=== PATIENT | female | born 1960 | race Caucasian/White ===

== ENCOUNTER → 2017-10-20 | Day surgery (SDC) | payer BC ==
[~2017-10-20] MED LIST: ACETAMINOPHEN 1000 MG/100 ML 100 ML IV ONE; BUPIVACAINE/EPINEPHRINE 0.25% 50 ML VIAL ONE; HYDROmorphone HCL PF 2 MG/ML VIAL ONE; ISOSULFAN BLUE 50 MG/5 ML VIAL SQ ONE; LACTATED RINGER'S 1000 ML INJ 1,000 ML ONE; LIDOCAINE 1%/EPINEPHrine 1:100,000 SOLN 30 ML VIAL ONE; MIDAZOLAM HCL 2 MG/2 ML VIAL ONE; MORPHINE SULFATE 4 MG/ML INJ ONE; ONDANSETRON HCL 4 MG/2 ML VIAL IV PUSH ONE; PROPOFOL 200 MG/20 ML AMP IV ONE; SODIUM CHLORIDE 0.9% INJ 0 ML ONE; ceFAZolin INJ 1,000 MG VIAL ONE
--- NOTE | 2017-10-20 15:39 | TN ---
cc: CONCEPCION BARNARD M.D. DATE OF SURGERY: 10/20/2017 PREOPERATIVE DIAGNOSIS Right breast cancer, possible multifocal. POSTOPERATIVE DIAGNOSIS Right breast cancer, possible multifocal. PROCEDURE Left total mastectomy, inject blue dye right breast, right total mastectomy, right axillary sentinel lymph node biopsy. SURGEON Dr. Concepcion Barnard. ANESTHESIA General. INDICATIONS This is a very pleasant 57-year-old woman who was recently diagnosed with infiltrating ductal carcinoma of the right breast, moderately differentiated, ER/CO positive, HER2/jessica negative. On MRI she was found to have enhancing mass in the left breast and additional enhancement in the right breast. She underwent MR guided biopsy of the right breast. The left breast was felt to be benign and after further evaluation and discussion she elected to proceed with bilateral mastectomy. INTRAOPERATIVE FINDINGS Left breast to pathology with short stitch superior anterior and long stitch lateral posterior. Right breast sent to pathology with a short stitch superior anterior and a long stitch lateral posterior. A separate inferomedial margin of the right side was sent with a stitch on the new inferior medial margin. Right axillary sentinel lymph nodes were removed. Number one had a 10 second count of 5210, number two [id number], number three [id number], none were blue. Two additional nonsentinel lymph nodes were sent. Estimated blood loss was less than 100 mL. Drains included a 10-Latvian fluted drain on each side. 25 ccs of Marcaine 0.25% with epinephrine was placed in each drain. Dressings included bilateral Hasmukh dressings. DESCRIPTION OF PROCEDURE IN DETAIL The patient was identified as Allie Carreon, taken to the operating room and placed in the supine position. Sequential compression devices were placed on bilateral lower extremities. Following induction of adequate general anesthesia a time-out procedure was performed. Following completion of time-out procedure to everyone's satisfaction within the room, the skin of the breast was prepped with alcohol swab and injected with 5 ccs of isosulfan blue dye. It is important to note the right breast was extremely ecchymotic following her most recent biopsy. The bilateral breast and axilla and upper chest were prepped and draped in usual sterile fashion with Betadine. The proposed fairly symmetric elliptical incisions clamshell shaped were made with a marking pen and attention was turned first to the left side. The incision was carried out with a scalpel and hemostasis controlled with electrocautery. Superior and inferior breast flaps were developed with electrocautery at the junction between subcutaneous tissue and the breast tissue. The breast was removed from the underlying pectoralis muscle including the fascia with the specimen medial to lateral. Hemoclips were used on lymphovascular structures at the junction of the breast in the axilla. The breast was removed in its entirety, marked with suture and passed off the field for pathologic evaluation. The wound was irrigated copiously with saline, removing all debris. Hemostasis was assured with electrocautery. Through an inferomedial incision a 10-Latvian fluted drain was placed into the wound and held in position at level of skin with a 3-0 Nylon drain stitch and the wound was closed in layers using multiple interrupted 3-0 Vicryl in the deep dermis and subcutaneous tissue and a running 4-0 Monocryl in the subcuticular position of the skin. Drain was connected to suction and the wound was covered with sterile towel and attention was turned to the right side. Incision on the right side was carried out with a scalpel. Hemostasis was controlled with electrocautery. Superior and inferior breast flaps were developed with the electrocautery in the plane between the subcutaneous fatty tissue and the breast tissue which was made more difficult to find inferiorly due to a hematoma post biopsy and a severe ecchymotic change in the inferior portion of the breast. Nevertheless, the breast was removed from the underlying pectoralis muscle including the fascia with the specimen medial to lateral. Lymphovascular structures laterally were cross-clamped with hemoclips and the specimen was removed in its entirity. Short stitch was placed superior anterior and a long stitch lateral posterior in right breast, passed off the field for pathologic evaluation. Evaluation of flaps demonstrated some additional tissue inferior medially and this was excised as a new inferomedial margin with a new suture on the new inferomedial margin. Hemostasis was assured. The wound was irrigated copiously with saline. Small bleeding points were controlled with electrocautery. Attention was then turned to right axillary sentinel lymph node biopsy. Using the navigator probe sentinel lymph node biopsy was performed. [place] nodes were from surrounding tissues using electrocautery, blunt dissection and hemoclips on lymphovascular structures. The nodes were removed as discussed above, 10-second count was performed and nodes passed off the field for pathologic evaluation. No blue dye stain was present in the axilla. Survey with the navigator probe demonstrated only increased uptake on a branch of the thoracodorsal vein. No additional palpable nodes, visually abnormal nodes or nodes with increased radionuclide uptake were identified. Again, axilla was irrigated with saline. There was no evidence of bleeding. Through the inferomedial stab incision a 10-Latvian fluted drain was placed, held in position at level of skin with 3-0 Nylon stitch so the end of the drain was in the axilla. The incision was then closed with multiple interrupted inverted 3-0 Vicryl sutures. Running 4-0 Monocryl in subcuticular position of the skin was placed. The skin was cleansed and dried and Mastisol placed. Biopatch's were placed in the drain exit sites. Hasmukh dressings bilaterally were placed in a standard fashion connected to suction and then their battery packs. There was no evidence of leak. The patient tolerated the procedures without apparent complication. Sponge, needle and instrument counts were correct at the end of the case. MD KATHY Julian/CHRISTOFER /2:54 PM /3:12 PM
== END | disposition home or self-care (01) ==
LOC: ESDC 06:56
PROVIDERS: ATTEND Surgery Trauma Surgery
DX: C50.911 Malignant neoplasm of unspecified site of right female breast (principal)
CPT/HCPCS: 00400; 01610; 19303; 38525; 38792; 88307; J0131; J0690; J1170; J2250; J2270; J2405; J3010; J7120; Q9968